=== PATIENT | female | born 1945 ===

== ENCOUNTER 2017-05-20 10:35 | Day surgery (SDC) | payer MEDICARE ==
[2017-05-16 09:16] VITALS: BMI 28.8
[2017-05-20] MEDS ORDERED: Propofol 10 mg/ml Inj (20 ML) ONE ×2 (12:27→12:44)
[2017-05-20 12:40] VITALS: O2SAT 99
[2017-05-20] MEDS ORDERED: Lactated Ringer's 1,000 ML IV SCH (13:00)
[2017-05-20 14:16] VITALS: BP 129/72; PULSE 50; RESP 19; TEMP 97.9
== END 2017-05-20 15:15 | disposition home or self-care (01) ==
LOC: ENDO 10:35
PROVIDERS: ATTEND Internal Medicine Gastroenterology
DX: K21.9 Gastro-esophageal reflux disease without esophagitis (principal); K44.9 Diaphragmatic hernia without obstruction or gangrene; K29.50 Unspecified chronic gastritis without bleeding
CPT/HCPCS: 43239; 88305; 88342; J2704; J7040; J7120

== ENCOUNTER 2017-12-26 10:01 | Day surgery (SDC) | payer OTHER ==
[2017-12-23 13:15] VITALS: BMI 29.4
[2017-12-26] MEDS ORDERED: Propofol 10 mg/ml Inj (20 ML) ONE (12:26)
[2017-12-26] MEDS ORDERED: Sodium Chloride 0.9% 1,000 ML IV SCH (12:45)
[2017-12-26 14:03] VITALS: BP 114/70; PULSE 60; RESP 14; TEMP 98.2; O2SAT 99
== END 2017-12-26 14:14 | disposition home or self-care (01) ==
LOC: ENDO 10:01
PROVIDERS: ATTEND Internal Medicine Gastroenterology
DX: K63.5 Polyp of colon (principal); K57.30 Diverticulosis of large intestine without perforation or abscess without bleeding; K64.8 Other hemorrhoids; K59.00 Constipation, unspecified
CPT/HCPCS: 45380; 88305; J2704; J7040

== ENCOUNTER 2018-04-22 13:33 | Observation (INO) | payer OTHER ==
[2018-04-22 13:34] VITALS: BMI 29.4
--- NOTE | 2018-04-22 14:57 | RAD ---
Date of service: 04/22/2018 HISTORY: chest pain COMPARISON: Portable chest 10/09/2016. FINDINGS: LUNGS: Inspiratory volume remains limited and prominent markings at the medial bases bilaterally may reflect crowding related to poor inspiratory effort. Infiltrates are not favored but further clinical correlation is recommended. PLEURA: No significant pleural effusion identified, no pneumothorax apparent. CARDIOVASCULAR: Given frontal technique, generally stable appearing cardiomediastinal silhouette. No pulmonary vascular congestion. OSSEOUS STRUCTURES: No significant abnormalities. VISUALIZED UPPER ABDOMEN: Normal. OTHER FINDINGS: Retrocardiac density likely reflects hiatal hernia once again. IMPRESSION: Minutes history volume may cause crowding of the bronchovascular markings at the medial bases. Early infiltrate not completely excluded but are not favored either. Clinically correlate further. No pleural effusion or pneumothorax bilaterally. Pulmonary vascular congestion. Relatively large hiatal hernia suspected.
--- NOTE | 2018-04-22 15:40 | ED PDOC ---
Arrival/HPI - General Chief Complaint: High Blood Pressure Time Seen by Provider: 04/22/18 14:10 Historian: Patient - History of Present Illness Narrative History of Present Illness (Text): 04/22/18 15:32 72yo female with pmhx of hypertension, Ventral hernia, GERD who present with complaint of epigastric abdominal pain and mid sternal chest pain x 2days. states pain was worse last night and he felt a "bump" on her chest. She however denies vomiting, diarrhea, constipation, SOB, diaphoresis, ripping/tearing upper back pain, fever,chills, LE edema, calf pain, [place], any other complaint. Past Medical History - Provider Review Nursing Documentation Reviewed: Yes - Infectious Disease Hx of Infectious Diseases: None - Tetanus Immunization Tetanus Immunization: Unknown - Reproductive Menopause: Yes - Cardiac Hx Hypertension: Yes - Pulmonary Hx Chronic Obstructive Pulmonary Disease (COPD): Yes - Neurological Hx Paralysis: No - HEENT Hx HEENT Disorder: No - Renal Hx Renal Disorder: No - Endocrine/Metabolic Hx Endocrine Disorders: No - Hematological/Oncological Hx Blood Transfusions: No Hx Blood Transfusion Reaction: No - Integumentary Hx Dermatological Disorder: No - Musculoskeletal/Rheumatological Hx Musculoskeletal Disorders: No - Gastrointestinal Hx Gastrointestinal Disorders: No - Genitourinary/Gynecological Hx Genitourinary Disorders: No - Psychiatric Hx Emotional Abuse: No Hx Physical Abuse: No Hx Substance Use: No - Surgical History Hx Cholecystectomy: Yes Hx Hysterectomy: Yes - Anesthesia Hx Anesthesia Reactions: No Hx Malignant Hyperthermia: No - Suicidal Assessment Feels Threatened In Home Enviroment: No Family/Social History - Physician Review Nursing Documentation Reviewed: Yes Family/Social History: Unknown Family HX Smoking Status: Former Smoker Hx Alcohol Use: No Hx Substance Use: No Allergies/Home Meds Allergies/Adverse Reactions: Allergies No Known Allergies Allergy (Verified 04/12/16 10:09) Home Medications: Home Meds Medication Instructions Recorded Confirmed Famotidine [Pepcid] 20 mg PO QPM 11/20/15 04/22/18 Levothyroxine Sodium [Levoxyl] 75 mcg PO DAILY 11/20/15 04/22/18 Olmesartan/Hydrochlorothiazide 12.5 mg PO DAILY 10/09/16 04/22/18 [Olmesartan-Hctz 40-12.5 mg Tab] Escitalopram [Lexapro] 10 mg PO DAILY 05/13/17 04/22/18 amLODIPine [Norvasc] 5 mg PO DAILY 05/13/17 04/22/18 ALPRAZolam [Xanax] 0.25 mg PO DAILY PRN 12/23/17 04/22/18 Aspirin [Lo-Dose Aspirin EC] 81 mg PO DAILY 12/23/17 04/22/18 Fluticasone Furoate [Arnuity 1 inh INH DAILY 12/23/17 04/22/18 Ellipta] Umeclidinium Brm/Vilanterol Tr 1 inh INH DAILY 12/23/17 04/22/18 [Anoro Ellipta 62.5-25 Mcg INH] traZODone [Desyrel] 50 mg PO HS 12/23/17 04/22/18 Albuterol Sulfate [Proair Hfa] 200 puff IH DAILY 04/15/18 04/22/18 Atorvastatin [Lipitor] 20 mg PO DAILY 04/22/18 04/22/18 Review of Systems - Physician Review All systems were reviewed & negative as marked: Yes - Review of Systems Constitutional: Normal Eyes: Normal ENT: Normal Respiratory: Normal Cardiovascular: Normal Gastrointestinal: Abdominal Pain, Nausea. absent: Constipation, Diarrhea, Vomiting, Hematochezia, Hematemesis Genitourinary Female: Normal Musculoskeletal: Normal Skin: Normal Neurological: Normal Endocrine: Normal Hemo/Lymphatic: Normal Psychiatric: Normal Physical Exam Vital Signs Reviewed: Yes Vital Signs Temp Pulse Pulse Resp BP Pulse Ox 04/22/18 18:01 98.3 F 59 L 18 99 04/22/18 18:00 59 L 04/22/18 16:48 55 L 19 137/67 97 04/22/18 13:57 99 F 97 H 18 167/91 H 99 Temperature: Afebrile Blood Pressure: Normal Pulse: Regular Respiratory Rate: Normal Appearance: Positive for: Well-Appearing, Non-Toxic, Comfortable Pain Distress: None Mental Status: Positive for: Alert and Oriented X 3 - Systems Exam Head: Present: Atraumatic, Normocephalic Pupils: Present: PERRL Extroacular Muscles: Present: EOMI Conjunctiva: Present: Normal Mouth: Present: Moist Mucous Membranes Neck: Present: Normal Range of Motion Respiratory/Chest: Present: Clear to Auscultation, Good Air Exchange. No: Respiratory Distress, Accessory Muscle Use, Wheezes, Decreased Breath Sounds, Rales, Retracting, Rhonchi Cardiovascular: Present: Regular Rate and Rhythm, Normal S1, S2. No: Murmurs Abdomen: No: Tenderness, Distention, Peritoneal Signs Back: Present: Normal Inspection Upper Extremity: Present: Normal Inspection. No: Cyanosis, Edema Lower Extremity: Present: Normal Inspection. No: Edema Neurological: Present: GCS=15, CN II-XII Intact, Speech Normal Skin: Present: Warm, Dry, Normal Color. No: Rashes Psychiatric: Present: Alert, Oriented x 3, Normal Insight, Normal Concentration Medical Decision Making ED Course and Treatment: 04/22/18 22:38 72yo female in ED for abdominal pain and chest pain x 2days. Labs ordered EKG Chest xray ASA , Pepcid ordered EKG Sinus dustin with nonspecific T waves @ 56bpm CXR NAD Lab was reviewed and first CE was unremarkable. However secondary to pt's cardiac risk factor, she needs OBS for serial cardiac exam. Case was DW and she accepted pt to her service. Result and plan was DW the pt and she agreed. - Lab Interpretations Lab Results: 04/22/18 15:46 04/22/18 15:46 Lab Results 04/22/18 15:46: Sodium 139, Potassium 3.8, Chloride 99, Carbon Dioxide 29, Anion Gap 15, BUN 13, Creatinine 0.7, Est GFR ( Amer) > 60, Est GFR (Non- Af Amer) > 60, Random Glucose 94, Calcium 9.6, Magnesium 1.9, Total Bilirubin 0.4, AST 29, ALT 27, Alkaline Phosphatase 65, Lactate Dehydrogenase 449, Total Creatine Kinase 105, Troponin I < 0.01, Total Protein 7.3, Albumin 4.2, Globulin 3.1, Albumin/Globulin Ratio 1.4, Lipase 83 04/22/18 15:46: Urine Color Yellow, Urine Appearance Clear, Urine pH 6.0, Ur Specific [place] 1.010, Urine Protein Negative, Urine Glucose (UA) Negative, Urine Ketones Negative, Urine Blood Trace-intact H, Urine Nitrate Negative, Urine Bilirubin Negative, Urine Urobilinogen 0.2, Ur Leukocyte Esterase Negative , Urine RBC 1 - 3, Urine WBC 0 - 2, Ur Epithelial Cells 3 - 4, Urine Bacteria Mod 04/22/18 15:46: PT 11.9, INR 1.04, APTT 29.5 04/22/18 15:46: WBC 5.3, RBC 4.65, Hgb 14.1, Hct 40.2, MCV 86.5, MCH 30.3, MCHC 35.1, RDW 14.1, Plt Count 216, MPV 9.1, Gran % 42.6 L, Lymph % (Auto) 45.3 H, [place] % (Auto) 7.9 H, Eos % (Auto) 3.6, Baso % (Auto) 0.6, Gran # 2.27, Lymph # ( Auto) 2.4, [place] # (Auto) 0.4, Eos # (Auto) 0.2, Baso # (Auto) 0.03 - RAD Interpretation Radiology Orders: 04/22/18 14:24 CHEST PORTABLE [RAD] Stat - Medication Orders Current Medication Orders: Albuterol Sulfate (Albuterol 0.083% Inhal Rubia (2.5 Mg/3 Ml) Ud) 2.5 mg IH [id number] [facility] Albuterol/Ipratropium (Duoneb 3 Mg/0.5 Mg (3 Ml) Ud) 3 ml IH Q2H PRN PRN Reason: Shortness of Breath Alprazolam (Xanax) 0.25 mg PO DAILY PRN; Protocol PRN Reason: Anxiety Stop: 04/29/18 20:51 Amlodipine Besylate (Norvasc) 5 mg PO DAILY [facility] Arformoterol Tartrate (Brovana) 15 mcg IH [id number] [facility] Arformoterol Tartrate (Brovana) 15 mcg IH [id number] [facility] Aspirin (Ecotrin) 81 mg PO DAILY [facility] Atorvastatin Calcium (Lipitor) 20 mg PO DIN [facility] Budesonide (Pulmicort Respules) 0.5 mg IH [id number] [facility] Enoxaparin Sodium (Lovenox) 40 mg SC DAILY [facility] PRN Reason: Protocol Escitalopram Oxalate (Lexapro) 10 mg PO DAILY [facility] Famotidine (Pepcid) 20 mg PO QPM [facility] Hydrochlorothiazide (Microzide) 12.5 mg PO DAILY [facility] Levothyroxine Sodium (Synthroid) 75 mcg PO 0600 [facility] Losartan Potassium (Cozaar) 100 mg PO DAILY [facility] Trazodone HCl (Desyrel) 50 mg PO HS [facility] Last Admin: 04/22/18 22:33 Dose: 50 mg Discontinued Medications Aspirin (Aspirin) 325 mg PO STAT STA Stop: 04/22/18 15:41 Last Admin: 04/22/18 17:15 Dose: 325 mg Famotidine (Pepcid) 20 mg IVP STAT STA Stop: 04/22/18 15:41 Last Admin: 04/22/18 17:15 Dose: 20 mg IVP Administration Document 04/22/18 17:15 [email or web address] (Rec: 04/22/18 17:15 [email or web address] [id number]) Charges for Administration # of IVP Administrations 1 Disposition/Present on Arrival - Present on Arrival Any Indicators Present on Arrival: No History of DVT/PE: No History of Uncontrolled Diabetes: No Urinary Catheter: No History of Decub. Ulcer: No History Surgical Site Infection Following: None - Disposition Have Diagnosis and Disposition been Completed?: Yes Diagnosis: Chest pain, Abdominal pain Disposition: HOSPITALIZED Disposition Time: 17:15 Patient Plan: Admission Patient Problems: Current Active Problems Problem Status Onset Abdominal pain Acute Chest pain Acute Condition: STABLE
[2018-04-22 16:38] LABS: BASO # 0.03 K/mm3 (0.0-2.0); BASO % 0.6 % (0.0-3.0); EOS # 0.2 (0.0-0.7); EOS % 3.6 % (1.5-5.0); GRAN # 2.27 (1.4-6.5); GRAN % 42.6 % (50.0-68.0); HEMOGLOBIN 14.1 g/dL (12.0-16.0); LYMPH # 2.4 (1.2-3.4); LYMPH % 45.3 % (22.0-35.0); MEAN CELL VOLUME 86.5 fl (80.0-105.0); MEAN CORPUSCULAR HEMOGLOBIN 30.3 pg (25.0-35.0); MEAN CORPUSCULAR HGB CONC 35.1 g/dl (31.0-37.0); MEAN PLATELET VOLUME 9.1 fl (7.0-11.0); MONO # 0.4 (0.1-0.6); MONO % 7.9 % (1.0-6.0); RBC 4.65 10^6/uL (3.5-6.1); RED CELL DISTRIBUTION WIDTH 14.1 % (11.5-14.5); WHITE BLOOD COUNT 5.3 10^3/ul (4.5-11.0)
[2018-04-22 16:39] LABS: URINE BILIRUBIN NEGATIVE (NEGATIVE); URINE BLOOD TRACE-INTACT (NEGATIVE); URINE GLUCOSE (UA) NEGATIVE (NEGATIVE); URINE LEUKOCYTE ESTERASE NEGATIVE Leu/uL (NEGATIVE); URINE PROTEIN NEGATIVE mg/dL (<30 mg/dL); URINE UROBILINOGEN 0.2 E.U./dL (<1 E.U./dL)
[2018-04-22 16:40] LABS: INR 1.04; PARTIAL THROMBOPLASTIN TIME 29.5 Seconds (25.1-36.5); PROTHROMBIN TIME 11.9 SECONDS (9.4-12.5)
[2018-04-22 16:45] LABS: ALB/GLOB RATIO 1.4 (1.1-1.8); ALBUMIN 4.2 g/dL (3.0-4.8); ALT/SGPT 27 U/L (7-56); AST/SGOT 29 U/L (14-36); BLOOD UREA NITROGEN 13 mg/dL (7-21); CALCIUM 9.6 mg/dL (8.4-10.5); GFR NON-AFRICAN AMERICAN > 60; LIPASE 83 U/L (23-300); URINE APPEARANCE CLEAR (CLEAR); URINE COLOR YELLOW (YELLOW)
[2018-04-22 17:02] LABS: TROPONIN I < 0.01 ng/mL
[2018-04-22 17:19] LABS: URINE BACTERIA MOD (NEG); URINE WBC 0 - 2 /hpf (0-6)
[2018-04-22] MEDS ORDERED: Albuterol-Ipratrop 3 mg / 0.5 (3 ml) UD IH PRN (19:36)
--- NOTE | 2018-04-22 21:05 | CP.PCM.HP ---
<AbhilashRay - Last Filed: 04/22/18 20:29> History of Present Illness - History of Present Illness History of Present Illness: Medicine H&P for : Abhilash, PGY - 2, IM resident Chief Complaint: Chest pain with abdominal pain HPI: 72 F with pertinent medical history of hypothyroidism, hyperlipidemia , GERD, and "pre-diabetes" presents with 2 day duration of mid-sternal, pressure like, 7/10 chest pain that is constant and occurs both at rest and on exertion. Patient states that over the past 2 months, whereas before she was able to easily walk 5 blocks, she now gets short of breath. Patient also complains of mild epigastric pain. Re: cardiac hx, patient had myocardial perfusion/stress test on 04/15/18; perfusion segment was normal, but the nuclear portion is pending. Patient last ECHO was 2013, with normal EF (64%), but mild diastolic dysfunction and RVSP of 28 (indicating mild pulm HTN). No hx of AMI or cath. EKG obtained in ED showed flattened T waves with bradycardia but normal rhythm (as read by me). Patient has questionable hx of aortic aneurysm, which, per chart review, was found to be negative on aortogram read by Dr. Murali Collins in 2017. Review of Systems: 12 point ROS obtained and negative except as per HPI Surgical Hx: Cholecystectomy, Appendectomy, Hysterectomy, Tonsillectomy Medical Hx: HTN, Hypothyroidism, HLD, Asthma, Depression, Phobias, Pre- diabetes Allergies: NKDA Social History: Denies illicits, tobacco; very rare social drinker Home Meds: ASA 81 mg/Lexapro 10 mg/Pepcid 20 mg/Lipitor 20 mg/Norvasc 5 mg/ Benicar+HCTZ 40/12.5 mg/Levothyroxine 75 mcg/Arnor Ellipta/Arnuity Ellipta - all daily; Xanax .25 mg HS prn; and Trazodone 50 mg HS Family History: Depression, thyroid dz, arthritis, VERMA's, asthma and HTN PMD: Dr. Copeland Present on Admission - Present on Admission Any Indicators Present on Admission: No Past Patient History - Infectious Disease Hx of Infectious Diseases: None - Tetanus Immunizations Tetanus Immunization: Unknown - Past Social History Smoking Status: Former Smoker - CARDIAC Hx Hypertension: Yes - PULMONARY Hx Chronic Obstructive Pulmonary Disease (COPD): Yes - NEUROLOGICAL Hx Paralysis: No - HEENT Hx HEENT Problems: No - RENAL Hx Chronic Kidney Disease: No - ENDOCRINE/METABOLIC Hx Endocrine Disorders: No - HEMATOLOGICAL/ONCOLOGICAL Hx Blood Transfusions: No Hx Blood Transfusion Reaction: No - INTEGUMENTARY Hx Dermatological Problems: No - MUSCULOSKELETAL/RHEUMATOLOGICAL Hx Musculoskeletal Disorders: No - GASTROINTESTINAL Hx Gastrointestinal Disorders: No - GENITOURINARY/GYNECOLOGICAL Hx Genitourinary Disorders: No - PSYCHIATRIC Hx Emotional Abuse: No Hx Physical Abuse: No Hx Substance Use: No - SURGICAL HISTORY Hx Cholecystectomy: Yes Hx Hysterectomy: Yes - ANESTHESIA Hx Anesthesia Reactions: No Hx Malignant Hyperthermia: No Meds Allergies/Adverse Reactions: Allergies Allergy/AdvReac Type Severity Reaction Status Date / Time No Known Allergies Allergy Verified 04/12/16 10:09 Physical Exam - Constitutional Appears: Well, Younger Than Stated Age - Head Exam Head Exam: ATRAUMATIC, NORMAL INSPECTION, NORMOCEPHALIC - Eye Exam Eye Exam: EOMI, Normal appearance, PERRL Pupil Exam: NORMAL ACCOMODATION, PERRL - ENT Exam ENT Exam: Mucous Membranes Moist, Normal Exam - Neck Exam Neck exam: Positive for: Normal Inspection - Respiratory Exam Respiratory Exam: Clear to Auscultation Bilateral, NORMAL BREATHING PATTERN - Cardiovascular Exam Cardiovascular Exam: REGULAR RHYTHM, RRR, +S1, +S2. absent: Irregular Rhythm, Systolic Murmur - GI/Abdominal Exam GI & Abdominal Exam: Normal Bowel Sounds, Soft. absent: Tenderness Additional comments: Patient has mild bulge in mid sub-diaphragmatic region, mildly tender to palpation - Extremities Exam Extremities exam: Positive for: normal inspection - Back Exam Back exam: NORMAL INSPECTION - Neurological Exam Neurological exam: Alert, CN II-XII Intact, Normal Gait, Oriented x3, Reflexes Normal - Psychiatric Exam Psychiatric exam: Normal Affect, Normal Mood - Skin Skin Exam: Dry, Intact, Normal Color, Warm Results - Vital Signs Recent Vital Signs: Last Vital Signs Temp 98.3 F 04/22/18 18:01 Pulse 59 L 04/22/18 18:01 Resp 18 04/22/18 18:01 BP 137/67 04/22/18 16:48 Pulse Ox 99 04/22/18 18:01 - Labs Result Diagrams: 04/22/18 15:46 04/22/18 15:46 Labs: Laboratory Results - last 24 hr 04/22/18 19:56 Troponin I < 0.01 Assessment & Plan - Assessment and Plan (Free Text) Assessment: 72 F with pertinent medical history of HTN, hypothyroidism, and HLD, admitted for chest pain. Patient's current lab values indicate no acute electrolyte abnormalities, as well as negative troponins, indicating no cardiac infarction. EKG on admission did not show any VIVIAN nor did it show any ST depressions indicating ischemia. Recent myocardial perfusion study is also negative. However, more data points included in the lipid panel, are necessary to calculate ASCVD score. WISAM score is 3. Plan: Chest Pain, likely 2/2 musculoskeletal VS GERD - Patient is getting pepcid in case of GERD - Tropes X 3; EKG in the AM; A1C, Lipid panel, TSH - Cardiology consult: Dr. Tidwell - Continue with home ASA Abdominal Pain, likely 2/2 GERD - GI COnsult: Dr. Hilario Hx HTN - Continue with home norvasc and substitute Benicar/HCTZ 40/12.5 with Losartan/ HCTZ 100/12.5 - Monitor vitals Hx Hypothyroidism - TSH - Continue with home Synthroid 75 mcg Hx HLD - Lipid panel, A1C as above - Continue with home Lipitor Hx Asthma - Duonebs PRN - Pulmicort, Brovana Hx Depression - Continue with home Lexapro Hx Phobias - Continue with home Trazodone, Xanax HS Pre-diabetes - A1C as above GI/DVT PPX - Pepcid; Juan score indicates chemical PPX, Lovenox <,Elisa R - Last Filed: 04/24/18 15:33> Results - Vital Signs Recent Vital Signs: Last Vital Signs Temp 97.8 F 04/23/18 12:00 Pulse 60 04/23/18 12:00 Resp 20 04/23/18 12:00 BP 155/89 H 04/23/18 12:00 Pulse Ox 99 04/23/18 06:00 - Labs Result Diagrams: 04/23/18 06:30 04/23/18 06:30 Attending/Attestation - Attestation I have personally seen and examined this patient.: Yes I have fully participated in the care of the patient.: Yes I have reviewed all pertinent clinical information: Yes Notes (Text): Patient seen and examined by me at 6:30PM with resident 04/22/18. Case including HPI, physical exam, and assessment and plan discussed with resident. Agree with above with following additions/corrections. Patient is a 72 year old female with past medical history significant for hypothyroidism, hyperlipidemia, GERD, pre-diabetes, asthma, depression, hypertension, and abdominal hernia that presented to the emergency room with chest pain and abdominal pain. Patient states pain started on Friday04/20/18. States pain is in middle of chest and in the abdomen. Pain is constant, worse at night. Pain does not radiate. She did not try any new medications for this. No associated diaphoresis. Patient states she did have some nausea yesterday. Patient did have recent stress test. Patient believes results were normal. Patient states she also has been having shortness of breath with ambulating 2 blocks for the past 2 months but has been following with radiology administrator. Patient also complains of headache since 04/20/18. No dizziness. No fevers or chills. No vomiting. No palpitations. No dysuria. No diarrhea or constipation. 12 point review of systems reviewed by me. Please see HPI. All other systems are negative. Family history: Patient is unsure. Mother when patient was 11 years of age and father when patient was 15 years of age. Physical exam: General: Awake and alert sitting up in bed in no acute distress HEENT: Normocephalic atraumatic. Pupils equal reactive. Extraocular muscles intact. Positive scleral icterus. Oropharynx is pink and moist. No pharyngeal erythema or exudate appreciated. Neck is supple. Hearing grossly intact. Ears and nose externally unremarkable Cardiovascular: Normal rhythm. Normal S1, S2. No murmurs, rubs, or gallops appreciated Pulmonary: Normal respiratory effort. No rhonchi, rales or wheezing appreciated. Gastrointestinal: Soft, nondistended. Positive epigastric tenderness. Positive bowel sounds all 4 quadrants, no guarding. Musculoskeletal: Moves all extremities, no calf tenderness, No edema appreciated. Central nervous system: AAOx3. CN2-12 grossly intact. 5/5 muscle strength all extremities. Dermatologic: Skin warm and dry Assessment and plan: Patient is a 72 year old female with past medical history significant for hypothyroidism, hyperlipidemia, GERD, pre-diabetes, asthma, depression, hypertension, and abdominal hernia that presented to the emergency room with chest pain and abdominal pain. 1. Chest pain. Rule out ACS. Reproducible. May be secondary to GERD. Cardiology consulted, follow up recommendations. Follow up serial troponins. Continue with ASA. Follow up 2d echo. Monitor on telemetry. 2. Abdominal pain. May be secondary to Reflux. Continue home pepcid. GI consulted, follow up recommendations. 3. Hypertension. Patient takes Benicar/HCTZ at home. Placed on losartan and HCTZ here 4. Hypothyroidism. Continue home synthroid 5. Hyperlipidemia. Continue home lipitor 6. Asthma. No acute exacerbation. Placed on Brovana and pulmicort here. Nebulizer treatments as needed 7. Depression and anxiety. Continue home lexapro, trazodone, and xanax. Case was discussed in detail with the patient regarding current diagnosis and treatment plan.
--- NOTE | 2018-04-22 23:21 | CARD ---
APPROVED REPORT Date of service: 04/22/2018 EKG Measurement Heart [id number] <Conclusion> Sinus bradycardia Nonspecific T wave abnormality Abnormal ECG
[2018-04-23 00:05] VITALS: RESP 20
[2018-04-23] MEDS ORDERED: Albuterol 0.083% Inhal Sol (2.5 mg/3 mL) UD IH SCH (02:00)
[2018-04-23] MEDS ORDERED: Levothyroxine 75 MCG TAB PO SCH (06:00)
[2018-04-23 06:32] VITALS: TEMP 97.8; O2SAT 99
[2018-04-23 07:08] LABS: BASO # 0.03 K/mm3 (0.0-2.0); BASO % 0.6 % (0.0-3.0); EOS # 0.2 (0.0-0.7); EOS % 3.8 % (1.5-5.0); GRAN # 1.62 (1.4-6.5); GRAN % 34.6 % (50.0-68.0); HEMOGLOBIN 13.5 g/dL (12.0-16.0); LYMPH # 2.5 (1.2-3.4); LYMPH % 53.5 % (22.0-35.0); MEAN CELL VOLUME 86.7 fl (80.0-105.0); MEAN CORPUSCULAR HEMOGLOBIN 29.9 pg (25.0-35.0); MEAN CORPUSCULAR HGB CONC 34.4 g/dl (31.0-37.0); MEAN PLATELET VOLUME 9.2 fl (7.0-11.0); MONO # 0.4 (0.1-0.6); MONO % 7.5 % (1.0-6.0); RBC 4.52 10^6/uL (3.5-6.1); RED CELL DISTRIBUTION WIDTH 14.3 % (11.5-14.5); WHITE BLOOD COUNT 4.7 10^3/ul (4.5-11.0)
[2018-04-23 07:10] LABS: ALB/GLOB RATIO 1.3 (1.1-1.8); ALBUMIN 3.7 g/dL (3.0-4.8); ALT/SGPT 30 U/L (7-56); AST/SGOT 25 U/L (14-36); BLOOD UREA NITROGEN 12 mg/dL (7-21); GFR NON-AFRICAN AMERICAN > 60; HDL CHOLESTEROL 45 mg/dL (29-60)
[2018-04-23 07:20] LABS: LDL CHOLESTEROL 83 mg/dL (0-129)
[2018-04-23] MEDS ORDERED: Arformoterol 15 mcg/2 ml Inh Sol IH SCH ×2 (08:00)
[2018-04-23] MEDS ORDERED: Budesonide 0.5 mg/2 ml Inhal Susp UD IH SCH (08:00)
--- NOTE | 2018-04-23 08:20 | CP.PCM.CON ---
History of Present Illness - History of Present Illness History of Present Illness: Awake,alert,no distress, denies chest pain now Reason for consultation: Cardiac evaluation of chest pain, history of hypertension, hyperlipidemia, asthma, depression Brief history of present illness: A 72 year old female who came in to the ER due to mid chest pressure for the past 2 days. Claimed to have shortness of breath when walking. History of hypertension,hypothyroidism, hyperlipidemia, GERD,asthma, depression, cholecystectomy, appendectomy, hysterectomy, tonsillectomy. Seen and examined by me and Dr. Gaines Review of Systems - Review of Systems All systems: reviewed and no additional remarkable complaints except Review of Systems: from HPI Past Patient History - Infectious Disease Hx of Infectious Diseases: None - Tetanus Immunizations Tetanus Immunization: Unknown - Past Social History Smoking Status: Former Smoker - CARDIAC Hx Hypertension: Yes - PULMONARY Hx Chronic Obstructive Pulmonary Disease (COPD): Yes - NEUROLOGICAL Hx Paralysis: No - HEENT Hx HEENT Problems: No - RENAL Hx Chronic Kidney Disease: No - ENDOCRINE/METABOLIC Hx Endocrine Disorders: No - HEMATOLOGICAL/ONCOLOGICAL Hx Blood Transfusions: No Hx Blood Transfusion Reaction: No - INTEGUMENTARY Hx Dermatological Problems: No - MUSCULOSKELETAL/RHEUMATOLOGICAL Hx Musculoskeletal Disorders: No - GASTROINTESTINAL Hx Gastrointestinal Disorders: No - GENITOURINARY/GYNECOLOGICAL Hx Genitourinary Disorders: No - PSYCHIATRIC Hx Emotional Abuse: No Hx Physical Abuse: No Hx Substance Use: No - SURGICAL HISTORY Hx Cholecystectomy: Yes Hx Hysterectomy: Yes - ANESTHESIA Hx Anesthesia Reactions: No Hx Malignant Hyperthermia: No Meds Home Medications: Home Medication List Medication Instructions Recorded Confirmed Type Levothyroxine [Synthroid] 100 mcg PO 0600 #14 tab 04/23/18 Rx Pantoprazole Sodium [Protonix] 40 mg PO DAILY #14 ect 04/23/18 Rx Ranitidine HCl 150 mg PO HS #14 tablet 04/23/18 Rx Allergies/Adverse Reactions: Allergies Allergy/AdvReac Type Severity Reaction Status Date / Time No Known Allergies Allergy Verified 04/12/16 10:09 - Medications Medications: Current Medications Albuterol/Ipratropium (Duoneb 3 Mg/0.5 Mg (3 Ml) Ud) 3 ml IH Q2H PRN PRN Reason: Shortness of Breath Alprazolam (Xanax) 0.25 mg PO DAILY PRN; Protocol PRN Reason: Anxiety Stop: 04/29/18 20:51 Amlodipine Besylate (Norvasc) 5 mg PO DAILY [facility] Arformoterol Tartrate (Brovana) 15 mcg IH [id number] [facility] Last Admin: 04/23/18 07:28 Dose: 15 mcg Aspirin (Ecotrin) 81 mg PO DAILY [facility] Atorvastatin Calcium (Lipitor) 20 mg PO DIN [facility] Budesonide (Pulmicort Respules) 0.5 mg IH [id number] [facility] Last Admin: 04/23/18 07:28 Dose: 0.5 mg Enoxaparin Sodium (Lovenox) 40 mg SC DAILY [facility] PRN Reason: Protocol Escitalopram Oxalate (Lexapro) 10 mg PO DAILY [facility] Famotidine (Pepcid) 20 mg PO QPM [facility] Hydrochlorothiazide (Microzide) 12.5 mg PO DAILY [facility] Levothyroxine Sodium (Synthroid) 75 mcg PO 0600 [facility] Last Admin: 04/23/18 06:00 Dose: Not Given Losartan Potassium (Cozaar) 100 mg PO DAILY [facility] Trazodone HCl (Desyrel) 50 mg PO HS [facility] Last Admin: 04/22/18 22:33 Dose: 50 mg Physical Exam - Constitutional Appears: No Acute Distress - Head Exam Head Exam: NORMOCEPHALIC - Eye Exam Eye Exam: Normal appearance - ENT Exam ENT Exam: Mucous Membranes Moist - Respiratory Exam Respiratory Exam: Decreased Breath Sounds, Clear to Auscultation Bilateral, NORMAL BREATHING PATTERN - Cardiovascular Exam Cardiovascular Exam: +S1, +S2 Additional comments: denies chest pain - GI/Abdominal Exam GI & Abdominal Exam: Normal Bowel Sounds, Soft Additional comments: non tender, mid epigastric pain - Neurological Exam Neurological exam: Alert, Oriented x3 - Psychiatric Exam Psychiatric exam: Normal Affect - Skin Skin Exam: Dry, Intact, Warm Results - Vital Signs Recent Vital Signs: Last Vital Signs Temp 97.8 F 04/23/18 06:00 Pulse 51 L 04/23/18 06:00 Resp 20 04/23/18 06:00 BP 119/70 04/23/18 06:00 Pulse Ox 99 04/23/18 06:00 - Labs Result Diagrams: 04/23/18 06:30 04/23/18 06:30 Labs: Laboratory Results - last 24 hr 04/22/18 04/23/18 04/23/18 19:56 01:50 06:30 WBC 4.7 RBC 4.52 Hgb 13.5 Hct 39.2 MCV 86.7 MCH 29.9 MCHC 34.4 RDW 14.3 Plt Count 208 MPV 9.2 Gran % 34.6 L Lymph % (Auto) 53.5 H Andrews % (Auto) 7.5 H Eos % (Auto) 3.8 Baso % (Auto) 0.6 Gran # 1.62 Lymph # (Auto) 2.5 Andrews # (Auto) 0.4 Eos # (Auto) 0.2 Baso # (Auto) 0.03 Sodium Potassium Chloride Carbon Dioxide Anion Gap BUN Creatinine Est GFR ( Amer) Est GFR (Non-Af Amer) Random Glucose Calcium Phosphorus Magnesium Total Bilirubin AST ALT Alkaline Phosphatase Troponin I < 0.01 < 0.01 Total Protein Albumin Globulin Albumin/Globulin Ratio Triglycerides Cholesterol LDL Cholesterol Direct HDL Cholesterol TSH 3rd Generation 04/23/18 04/23/18 04/23/18 06:30 06:30 07:30 WBC RBC Hgb Hct MCV MCH MCHC RDW Plt Count MPV Gran % Lymph % (Auto) Andrews % (Auto) Eos % (Auto) Baso % (Auto) Gran # Lymph # (Auto) Andrews # (Auto) Eos # (Auto) Baso # (Auto) Sodium 139 Potassium 3.7 Chloride 102 Carbon Dioxide 28 Anion Gap 13 BUN 12 Creatinine 0.7 Est GFR ( Amer) > 60 Est GFR (Non-Af Amer) > 60 Random Glucose 93 Calcium 9.0 Phosphorus 3.8 Magnesium 1.9 Total Bilirubin 0.6 AST 25 ALT 30 Alkaline Phosphatase 54 Troponin I < 0.01 Total Protein 6.6 Albumin 3.7 Globulin 2.9 Albumin/Globulin Ratio 1.3 Triglycerides 87 Cholesterol 165 LDL Cholesterol Direct 83 HDL Cholesterol 45 TSH 3rd Generation 7.57 H Assessment & Plan - Assessment and Plan (Free Text) Assessment: A 72 year old female who came in to the ER due to mid chest pressure for the past 2 days. Claimed to have shortness of breath when walking. Upon examination , pressure is at upper epigastric area, below sternum.Denies any pain at examination. Patient has history of GERD. History of hypertension,hypothyroidism , hyperlipidemia, asthma, COPD, former smoker,depression, cholecystectomy, appendectomy, hysterectomy, tonsillectomy. Atypical chest pain.GERD or possible hiatal hernia. Troponin x 4 normal. Recent Stress test normal. Review of previous cardiac work up: 04/15/18- Stress test-Normal myocardial perfusion, LVEF 76 % good LV function 04/29/14-ECHO- Normal valve structure, LVEF 64% Plan: Denies chest pain now, pressure like at mid epigastric area Continue Pepcid Heart rate and blood pressure stable Troponin x 4 normal Echo to evaluate LV function On Norvasc 5 mg daily,ASA 81 mg daily, Lovenox 40 mg daily, Pepcid 20 mg daily, Microzide 12.5 mg daily,Synthroid 75 mcg daily Cozaar 100 mg daily GI on consult Continue current treatment Continue current medications Will follow up Plan and treatment discussed with Dr. Gaines Thank you for the opportunity in taking care of Ms. Jaimie Clifton - Date & Time Date: 04/23/18 Time: 06:10
--- NOTE | 2018-04-23 09:07 | CP.PCM.CON ---
History of Present Illness - History of Present Illness History of Present Illness: Gastroenterology consult note for Dr. Sulaiman Boyle PGY2 Reason for consult: Abdominal pain with Hx GERD Patient is a 72 F with a past medical history significant for hypothyroidism, hypertension, gastritis, diverticulosis who presented with complaints of chest pain which began Friday night. Patient states on Friday prior to bed she felt fine however during the night she was experiencing chest and abdominal pain which causes her to toss and turn through the night. That morning she woke up with the same pain which remain constant. She states she tried taking tylenol to relieve the pain however was not successful. Patient describes the pain ad a pressure in the substernal region rating it initially a 10/10 with no radiation. States substernal chest pain pain was constant and had associated abdominal pain which was also non radiating but localized to the epigastric region. Patient states she then went to [place] on Friday with family despite her pain. With persistence of pain patient states she returned from [place] on Friday and came straight to the emergency department. Patient was evaluated this morning and states abdominal pain has fully resolved however substernal pain is still present at a 2/10. Patient denies current abdominal pain, nausea, vomiting, diarrhea, loss of appetite, bloody bowel movements, shortness of breath, fevers, chills, headache, cough, Patient last performed colonoscopy was 11/2017 which revealed internal hemorrhoids , diminutive cecal polyp and diverticulosis. Cecal polyp path report revealed hyperplastic changed without dysplasia. Upper EGD was performed in 05/2017 which revealed chronic gastritis and paraesophageal hernia. Patient was recommended to continue with PPI therapy. Patient also had cardiac stress test this year which was negative for any abnormal findings. PMD:Dr. Copeland Gastroenterologit: Dr. Hilario Surgical Hx:Cholecystectomy, Appendectomy, Hysterectomy, Tonsillectomy Medical Hx:HTN, Hypothyroidism, HLD, Asthma, Depression, Phobias, Pre-diabetes Allergies:NKDA Social History:Denies illicits, tobacco; very rare social drinker Home Meds:ASA 81 mg/Lexapro 10 mg/Pepcid 20 mg/Lipitor 20 mg/Norvasc 5 mg/ Benicar+HCTZ 40/12.5 mg/Levothyroxine 75 mcg/Arnor ,Ellipta/Arnuity Ellipta - all daily; Xanax .25 mg HS prn; and Trazodone 50 mg HS Family History:Depression, thyroid dz, arthritis, VERMA's, asthma and HTN Review of Systems - Constitutional Constitutional: absent: Anorexia, Chills, Fatigue, Fever - EENT Eyes: absent: Change in Vision - Cardiovascular Cardiovascular: Chest Pain. absent: Leg Edema - Respiratory Respiratory: absent: Cough, Dyspnea - Gastrointestinal Gastrointestinal: absent: Abdominal Pain, Nausea, Vomiting - Genitourinary Genitourinary: absent: Dysuria - Musculoskeletal Musculoskeletal: absent: Arthralgias - Neurological Neurological: absent: Abnormal Gait, Dizziness, Numbness - Psychiatric Psychiatric: absent: Anxiety Past Patient History - Infectious Disease Hx of Infectious Diseases: None - Tetanus Immunizations Tetanus Immunization: Unknown - Past Social History Smoking Status: Former Smoker - CARDIAC Hx Hypertension: Yes - PULMONARY Hx Chronic Obstructive Pulmonary Disease (COPD): Yes - NEUROLOGICAL Hx Paralysis: No - HEENT Hx HEENT Problems: No - RENAL Hx Chronic Kidney Disease: No - ENDOCRINE/METABOLIC Hx Endocrine Disorders: No - HEMATOLOGICAL/ONCOLOGICAL Hx Blood Transfusions: No Hx Blood Transfusion Reaction: No - INTEGUMENTARY Hx Dermatological Problems: No - MUSCULOSKELETAL/RHEUMATOLOGICAL Hx Musculoskeletal Disorders: No - GASTROINTESTINAL Hx Gastrointestinal Disorders: No - GENITOURINARY/GYNECOLOGICAL Hx Genitourinary Disorders: No - PSYCHIATRIC Hx Emotional Abuse: No Hx Physical Abuse: No Hx Substance Use: No - SURGICAL HISTORY Hx Cholecystectomy: Yes Hx Hysterectomy: Yes - ANESTHESIA Hx Anesthesia Reactions: No Hx Malignant Hyperthermia: No Meds Allergies/Adverse Reactions: Allergies Allergy/AdvReac Type Severity Reaction Status Date / Time No Known Allergies Allergy Verified 04/12/16 10:09 - Medications Medications: Current Medications Albuterol/Ipratropium (Duoneb 3 Mg/0.5 Mg (3 Ml) Ud) 3 ml IH Q2H PRN PRN Reason: Shortness of Breath Alprazolam (Xanax) 0.25 mg PO DAILY PRN; Protocol PRN Reason: Anxiety Stop: 04/29/18 20:51 Amlodipine Besylate (Norvasc) 5 mg PO DAILY [facility] Arformoterol Tartrate (Brovana) 15 mcg IH [id number] NATALI Last Admin: 04/23/18 07:28 Dose: 15 mcg Aspirin (Ecotrin) 81 mg PO DAILY [facility] Atorvastatin Calcium (Lipitor) 20 mg PO DIN [facility] Budesonide (Pulmicort Respules) 0.5 mg IH [id number] [facility] Last Admin: 04/23/18 07:28 Dose: 0.5 mg Enoxaparin Sodium (Lovenox) 40 mg SC DAILY [facility] PRN Reason: Protocol Escitalopram Oxalate (Lexapro) 10 mg PO DAILY [facility] Famotidine (Pepcid) 20 mg PO QPM [facility] Hydrochlorothiazide (Microzide) 12.5 mg PO DAILY [facility] Levothyroxine Sodium (Synthroid) 75 mcg PO 0600 [facility] Last Admin: 04/23/18 06:00 Dose: Not Given Losartan Potassium (Cozaar) 100 mg PO DAILY [facility] Trazodone HCl (Desyrel) 50 mg PO HS [facility] Last Admin: 04/22/18 22:33 Dose: 50 mg Physical Exam - Head Exam Head Exam: ATRAUMATIC, NORMAL INSPECTION, NORMOCEPHALIC - Eye Exam Eye Exam: EOMI, Normal appearance - ENT Exam ENT Exam: Mucous Membranes Moist, Normal Exam - Neck Exam Neck exam: Positive for: Normal Inspection - Respiratory Exam Respiratory Exam: Clear to Auscultation Bilateral, Rhonchi, NORMAL BREATHING PATTERN - Cardiovascular Exam Cardiovascular Exam: REGULAR RHYTHM, +S1, +S2 - GI/Abdominal Exam GI & Abdominal Exam: Normal Bowel Sounds. absent: Distended, Firm, Mass - Extremities Exam Extremities exam: Positive for: normal inspection - Back Exam Back exam: NORMAL INSPECTION - Neurological Exam Neurological exam: Alert, CN II-XII Intact, Oriented x3 - Psychiatric Exam Psychiatric exam: Normal Affect, Normal Mood - Skin Skin Exam: Intact, Normal Color, Warm Results - Vital Signs Recent Vital Signs: Last Vital Signs Temp 97.8 F 04/23/18 06:00 Pulse 51 L 04/23/18 06:00 Resp 20 04/23/18 06:00 BP 119/70 04/23/18 06:00 Pulse Ox 99 04/23/18 06:00 - Labs Result Diagrams: 04/23/18 06:30 04/23/18 06:30 Labs: Laboratory Results - last 24 hr 04/22/18 04/23/18 04/23/18 19:56 01:50 06:30 WBC 4.7 RBC 4.52 Hgb 13.5 Hct 39.2 MCV 86.7 MCH 29.9 MCHC 34.4 RDW 14.3 Plt Count 208 MPV 9.2 Gran % 34.6 L Lymph % (Auto) 53.5 H [place] % (Auto) 7.5 H Eos % (Auto) 3.8 Baso % (Auto) 0.6 Gran # 1.62 Lymph # (Auto) 2.5 [place] # (Auto) 0.4 Eos # (Auto) 0.2 Baso # (Auto) 0.03 Sodium Potassium Chloride Carbon Dioxide Anion Gap BUN Creatinine Est GFR ( Amer) Est GFR (Non-Af Amer) Random Glucose Calcium Phosphorus Magnesium Total Bilirubin AST ALT Alkaline Phosphatase Troponin I < 0.01 < 0.01 Total Protein Albumin Globulin Albumin/Globulin Ratio Triglycerides Cholesterol LDL Cholesterol Direct HDL Cholesterol TSH 3rd Generation 04/23/18 04/23/18 04/23/18 06:30 06:30 07:30 WBC RBC Hgb Hct MCV MCH MCHC RDW Plt Count MPV Gran % Lymph % (Auto) [place] % (Auto) Eos % (Auto) Baso % (Auto) Gran # Lymph # (Auto) [place] # (Auto) Eos # (Auto) Baso # (Auto) Sodium 139 Potassium 3.7 Chloride 102 Carbon Dioxide 28 Anion Gap 13 BUN 12 Creatinine 0.7 Est GFR ( Amer) > 60 Est GFR (Non-Af Amer) > 60 Random Glucose 93 Calcium 9.0 Phosphorus 3.8 Magnesium 1.9 Total Bilirubin 0.6 AST 25 ALT 30 Alkaline Phosphatase 54 Troponin I < 0.01 Total Protein 6.6 Albumin 3.7 Globulin 2.9 Albumin/Globulin Ratio 1.3 Triglycerides 87 Cholesterol 165 LDL Cholesterol Direct 83 HDL Cholesterol 45 TSH 3rd Generation 7.57 H Assessment & Plan - Assessment and Plan (Free Text) Assessment: Patient is a 72 F with a past medical history significant for hypothyroidism, hypertension, gastritis, diverticulosis who presented with complaints of chest pain and abdominal pain (now resolved) which began Friday night. Plan: -Continue with PPI therapy -CT abdomen/pelvis with PO and IV contrast
[2018-04-23] MEDS ORDERED: Enoxaparin 40 mg Syringe SC SCH (10:00)
[2018-04-23] MEDS ORDERED: Albuterol HFA 90 mcg/actuation (8 g) IH SCH (10:00)
[2018-04-23] MEDS ORDERED: Barium Sulfate Susp 2.1% w/v, 2.0% w/w 450 mL Bottle PO ONE (10:26)
[2018-04-23 12:43] VITALS: BP 155/89; PULSE 60
[2018-04-23] MEDS ORDERED: Iohexol 350 MG/100 ML VIAL ONE (12:53)
--- NOTE | 2018-04-23 13:42 | CT ---
Date of service: 04/23/2018 PROCEDURE: CT Abdomen and Pelvis with contrast HISTORY: abdominal pain COMPARISON: None. TECHNIQUE: Contrast dose: 100 cc of Omni 350 Radiation dose: Total exam DLP = 446 mGy-cm. This CT exam was performed using one or more of the following dose reduction techniques: Automated exposure control, adjustment of the mA and/or kV according to patient size, and/or use of iterative reconstruction technique. FINDINGS: LOWER THORAX: There is a large hiatal hernia. The stomach is moderately distended and filled with debris. LIVER: Unremarkable. No gross lesion or ductal dilatation. GALLBLADDER AND BILE DUCTS: Gallbladder removed. PANCREAS: Unremarkable. No gross lesion or ductal dilatation. SPLEEN: Unremarkable. ADRENALS: Unremarkable. No mass. KIDNEYS AND URETERS: Unremarkable. No hydronephrosis. No solid mass. VASCULATURE: Unremarkable. No aortic aneurysm. BOWEL: Unremarkable. No obstruction. No gross mural thickening. APPENDIX: Normal appendix. PERITONEUM: Unremarkable. No free fluid. No free air. LYMPH NODES: Unremarkable. No enlarged lymph nodes. BLADDER: Unremarkable. REPRODUCTIVE: Unremarkable. BONES: No acute fracture. OTHER FINDINGS: None. IMPRESSION: Large hiatal hernia. No acute intra-abdominal findings
--- NOTE | 2018-04-23 18:32 | CARD ---
APPROVED REPORT Date of service: 04/23/2018 EXAM: Two-dimensional and M-mode echocardiogram with Doppler and color Doppler. INDICATION CP, R/O ACS 2D DIMENSIONS Left Atrium (2D)3.1 (1.6-4.0cm)IVSd1.0 (0.7-1.1cm) LVDd4.1 (3.9-5.9cm)PWd1.1 (0.7-1.1cm) LVDs2.7 (2.5-4.0cm)FS (%) 33.5 % LVEF (%)62.8 (>50%) M-Mode DIMENSIONS Aortic Root3.00 (2.2-3.7cm)Aortic Cusp Exc.1.50 (1.5-2.0cm) Aortic Valve AoV Peak Wncdqyza189.0cm/Madhuri Peak GR.9mmHg Mitral Valve MV E Fbbhlfmd24.1cm/sMV A Jefwdecj98.5cm/sE/A ratio0.9 TDI Lateral E' Peak V6.43cm/sMedial E' Peak V4.68cm/sE/Lateral E'10.7 E/Medial E'14.8 Pulmonary Valve PV Peak Cutdjweb78.1cm/sPV Peak Grad.2mmHg Tricuspid Valve TR Peak Pfgglzhz607rg/sRAP ISPJFDSD12klMzVW Peak Gr.22mmHg [id number] LEFT VENTRICLE The left ventricle is normal size. There is normal left ventricular wall thickness. The left ventricular function is normal. The left ventricular ejection fraction is within the normal range. There is normal LV segmental wall motion. Transmitral Doppler flow pattern is Grade I-abnormal relaxation pattern. RIGHT VENTRICLE The right ventricle is normal size. There is normal right ventricular wall thickness. The right ventricular systolic function is normal. ATRIA The left atrium size is normal. The right atrium size is normal. AORTIC VALVE The aortic valve is mildly thickened. No aortic regurgitation is present. There is no aortic valvular stenosis. MITRAL VALVE The mitral valve is normal in structure. There is no mitral valve regurgitation noted. There is no mitral valve stenosis. TRICUSPID VALVE The tricuspid valve is normal in structure. There is trace to mild tricuspid regurgitation. GREAT VESSELS The aortic root is normal in size. The IVC is normal in size and collapses >50% with inspiration. PERICARDIAL EFFUSION There is a trace loculated anterior pericardial effusion. <Conclusion> The left ventricle is normal size. There is normal left ventricular wall thickness. The left ventricular function is normal. The left ventricular ejection fraction is within the normal range. There is normal LV segmental wall motion. Transmitral Doppler flow pattern is Grade I-abnormal relaxation pattern.
--- NOTE | 2018-04-23 19:21 | CARD ---
APPROVED REPORT Date of service: 04/23/2018 EKG Measurement Heart [id number] <Conclusion> Sinus bradycardia Inferior infarct, age undetermined T wave abnormality, consider anterolateral ischemia Abnormal ECG
--- NOTE | 2018-04-23 22:37 | CP.PCM.DIS ---
<Maximo Patel - Last Filed: 04/23/18 23:17> Provider - Provider Date of Admission: 04/22/18 17:17 Attending physician: Edis Alatorre MD Primary care physician: Mina Copeland MD Consults: GI - Dr. Hilario Cardiology - Dr. Gaines Time Spent in preparation of Discharge (in minutes): 40 Diagnosis - Discharge Diagnosis (1) Chest pain Status: Acute Priority: High (2) GERD (gastroesophageal reflux disease) Status: Acute Priority: High (3) Hypothyroid Status: Chronic Priority: Medium (4) HTN (hypertension) Status: Chronic Priority: Low Hospital Course - Lab Results Lab Results: Most Recent Lab Values WBC 4.7 10^3/ul (4.5-11.0) 04/23/18 06:30 RBC 4.52 10^6/uL (3.5-6.1) 04/23/18 06:30 Hgb 13.5 g/dL (12.0-16.0) 04/23/18 06:30 Hct 39.2 % (36.0-48.0) 04/23/18 06:30 MCV 86.7 fl (80.0-105.0) 04/23/18 06:30 MCH 29.9 pg (25.0-35.0) 04/23/18 06:30 MCHC 34.4 g/dl (31.0-37.0) 04/23/18 06:30 RDW 14.3 % (11.5-14.5) 04/23/18 06:30 Plt Count 208 10^3/uL (120.0-450.0) 04/23/18 06:30 MPV 9.2 fl (7.0-11.0) 04/23/18 06:30 Gran % 34.6 % (50.0-68.0) L 04/23/18 06:30 Lymph % (Auto) 53.5 % (22.0-35.0) H 04/23/18 06:30 [place] % (Auto) 7.5 % (1.0-6.0) H 04/23/18 06:30 Eos % (Auto) 3.8 % (1.5-5.0) 04/23/18 06:30 Baso % (Auto) 0.6 % (0.0-3.0) 04/23/18 06:30 Gran # 1.62 (1.4-6.5) 04/23/18 06:30 Lymph # (Auto) 2.5 (1.2-3.4) 04/23/18 06:30 [place] # (Auto) 0.4 (0.1-0.6) 04/23/18 06:30 Eos # (Auto) 0.2 (0.0-0.7) 04/23/18 06:30 Baso # (Auto) 0.03 K/mm3 (0.0-2.0) 04/23/18 06:30 PT 11.9 SECONDS (9.4-12.5) 04/22/18 15:46 INR 1.04 04/22/18 15:46 APTT 29.5 Seconds (25.1-36.5) 04/22/18 15:46 Sodium 139 mmol/L (132-148) 04/23/18 06:30 Potassium 3.7 mmol/L (3.6-5.0) 04/23/18 06:30 Chloride 102 mmol/L (98-107) 04/23/18 06:30 Carbon Dioxide 28 mmol/L (21-33) 04/23/18 06:30 Anion Gap 13 (10-20) 04/23/18 06:30 BUN 12 mg/dL (7-21) 04/23/18 06:30 Creatinine 0.7 mg/dl (0.7-1.2) 04/23/18 06:30 Est GFR ( Amer) > 60 04/23/18 06:30 Est GFR (Non-Af Amer) > 60 04/23/18 06:30 Random Glucose 93 mg/dL (70-110) 04/23/18 06:30 Hemoglobin A1c 5.6 % (4.2-6.5) 04/23/18 06:30 Calcium 9.0 mg/dL (8.4-10.5) 04/23/18 06:30 Phosphorus 3.8 mg/dL (2.5-4.5) 04/23/18 06:30 Magnesium 1.9 mg/dL (1.7-2.2) 04/23/18 06:30 Total Bilirubin 0.6 mg/dL (0.2-1.3) 04/23/18 06:30 AST 25 U/L (14-36) 04/23/18 06:30 ALT 30 U/L (7-56) 04/23/18 06:30 Alkaline Phosphatase 54 U/L (38-126) 04/23/18 06:30 Lactate Dehydrogenase 449 U/L (333-699) 04/22/18 15:46 Total Creatine Kinase 105 U/L (35-230) 04/22/18 15:46 Troponin I < 0.01 ng/mL 04/23/18 07:30 Total Protein 6.6 g/dL (5.8-8.3) 04/23/18 06:30 Albumin 3.7 g/dL (3.0-4.8) 04/23/18 06:30 Globulin 2.9 gm/dL 04/23/18 06:30 Albumin/Globulin Ratio 1.3 (1.1-1.8) 04/23/18 06:30 Triglycerides 87 mg/dL (35-160) 04/23/18 06:30 Cholesterol 165 mg/dL (130-200) 04/23/18 06:30 LDL Cholesterol Direct 83 mg/dL (0-129) 04/23/18 06:30 HDL Cholesterol 45 mg/dL (29-60) 04/23/18 06:30 Lipase 83 U/L (23-300) 04/22/18 15:46 Free T4 1.62 ng/dL (0.78-2.19) 04/23/18 06:30 TSH 3rd Generation 7.57 mIU/mL (0.46-4.68) H 04/23/18 06:30 Urine Color Yellow (YELLOW) 04/22/18 15:46 Urine Appearance Clear (CLEAR) 04/22/18 15:46 Urine pH 6.0 (4.7-8.0) 04/22/18 15:46 Ur Specific [place] 1.010 (1.005-1.035) 04/22/18 15:46 Urine Protein Negative mg/dL (<30 mg/dL) 04/22/18 15:46 Urine Glucose (UA) Negative mg/dL (NEGATIVE) 04/22/18 15:46 Urine Ketones Negative mg/dL (NEGATIVE) 04/22/18 15:46 Urine Blood Trace-intact (NEGATIVE) H 04/22/18 15:46 Urine Nitrate Negative (NEGATIVE) 04/22/18 15:46 Urine Bilirubin Negative (NEGATIVE) 04/22/18 15:46 Urine Urobilinogen 0.2 E.U./dL (<1 E.U./dL) 04/22/18 15:46 Ur Leukocyte Esterase Negative Roman/uL (NEGATIVE) 04/22/18 15:46 Urine RBC 1 - 3 /hpf (0-2) 04/22/18 15:46 Urine WBC 0 - 2 /hpf (0-6) 04/22/18 15:46 Ur Epithelial Cells 3 - 4 /hpf (0-5) 04/22/18 15:46 Urine Bacteria Mod (NEG) 04/22/18 15:46 - Hospital Course Hospital Course: 72 F with pertinent medical history of HTN, hypothyroidism, and HLD, presented to [facility] ED on 04/22 with CC of chest pain. On admission, current lab values indicate no acute electrolyte abnormalities, as well as negative troponins, indicating no cardiac infarction. EKG on admission did not show any VIVIAN nor did it show any ST depressions indicating ischemia. Recent myocardial perfusion study is also negative. Troponins were trended x3 without any elevation, repeat EKG in AM relatively unchanged from prior EKG. Patient's lipid panel was wnl, and TSH was elevated. Her synthroid doseage was subsequently increased. Repeat echocardiogram showed no change in EF. CTAP showed patient had a large hiatal hernia; and GI evaluation conlcuded that patient is to continue with PPI therapy as discussed from office visits with Dr. Hilario. She is also to continue with small soft consistency meals through the day. Due to large size of paraesophageal type 3 hernia patient is recommended to been further evaluated by surgery for correction of hiatal hernia which is most likely a cause of her symptoms. Patient can follow up with Dr. Hilario within 1 week of discharge. She was also given a referral for general surgery as well. On morning prior to discharge, Patient was seen and examined at bedside. She reported decreased complaints of chest pain, and epigastric discomfort. She denied any N/V/D/C, SOB, Cough, LE Edema, Numbness/tingling, Focal weakness on evaluation. Remainder of 12 system ROS was otherwise unremarkable morning of DC. She was given the following instructions upon discharge: Please follow up with your primary care doctor, Dr. Copeland, within 3-5 days for post hospitalization follow up. Please discuss with him any changes to your medications and all medical ailments treated during your admission. Please follow up with your product mgr, Dr. Hilario, within one to two weeks for post hospitalization follow up. Please discuss with him any changes to your medications and all medical ailments treated during your admission. Dr. Hilario's contact information has been provided for your convenience. It has been recommended that you follow up with a general surgeon for evaluation of hiatal hernia repair. Dr. Margaret Patel is a general surgeon and his contact information has been provided for your convenience. We have increased the dose of your Synthroid, thyroid medication, from 75mcg daily to 100mcg daily as your TSH was increased during this admission. Please discuss this and the need for further monitoring with your primary care doctor, Dr. Copeland. We have added two medications for you. They are called Protonix and Zantac and these will help control your acid reflux symptoms and help to manage symptoms of your hiatal hernia. You will take the Protonix in the morning and the Zantac before bedtime. Please discuss these new medications and any further questions you may have with your primary care doctor, Dr. Copeland. Information on these medications have been provided in this paperwork. It has been recommended by Dr. Hilario that you adhere to a soft food diet and that you eat six davis meals per day. Please discontinue your home Pepcid. The two new medications that have been added will replace this medication. Please take all medications as prescribed. Should your symptoms return, please seek emergency medical care attention. ---- Patient is medically optimized for discharge at this time. - Date & Time of H&P Date of H&P: 04/22/18 Time of H&P: 20:29 Discharge Exam - Head Exam Head Exam: ATRAUMATIC, NORMAL INSPECTION, NORMOCEPHALIC - Eye Exam Eye Exam: EOMI, Normal appearance, PERRL. absent: Scleral icterus - ENT Exam ENT Exam: Mucous Membranes Moist - Respiratory Exam Respiratory Exam: Clear to PA & Lateral, UNREMARKABLE. absent: Rales, Rhonchi, Wheezes - Cardiovascular Exam Cardiovascular Exam: REGULAR RHYTHM, RRR, +S1, +S2 Additional comments: Chest wall tenderness to palpation along sternal border - GI/Abdominal Exam GI & Abdominal Exam: Normal Bowel Sounds, Soft, Tenderness Additional comments: Minimal abdominal tenderness in epigastric region - Extremities Exam Extremities exam: pedal pulses present Additional comments: no LE Edema - Back Exam Back exam: absent: CVA tenderness (L), CVA tenderness (R) - Neurological Exam Neurological exam: Alert, CN II-XII Intact, Oriented x3 - Psychiatric Exam Psychiatric exam: Normal Affect, Normal Mood - Skin Skin Exam: Dry, Intact, Normal Color, Warm Discharge Plan - Discharge Medications Prescriptions: Levothyroxine [Synthroid] 100 mcg PO 0600 #14 tab Pantoprazole Sodium [Protonix] 40 mg PO DAILY #14 ect Ranitidine HCl 150 mg PO HS #14 tablet - Follow Up Plan Condition: STABLE Disposition: HOME/ ROUTINE Instructions: Acid Reflux (Gastroesophageal Reflux Disease), Adult (DC), Hiatal Hernia (DC), Levothyroxine, Pantoprazole, Ranitidine Additional Instructions: Please follow up with your primary care doctor, Dr. Copleand, within 3-5 days for post hospitalization follow up. Please discuss with him any changes to your medications and all medical ailments treated during your admission. Please follow up with your product mgr, Dr. Hilario, within one to two weeks for post hospitalization follow up. Please discuss with him any changes to your medications and all medical ailments treated during your admission. Dr. Hilario's contact information has been provided for your convenience. It has been recommended that you follow up with a general surgeon for evaluation of hiatal hernia repair. Dr. Margaret Patel is a general surgeon and his contact information has been provided for your convenience. We have increased the dose of your Synthroid, thyroid medication, from 75mcg daily to 100mcg daily as your TSH was increased during this admission. Please discuss this and the need for further monitoring with your primary care doctor, Dr. Copeland. We have added two medications for you. They are called Protonix and Zantac and these will help control your acid reflux symptoms and help to manage symptoms of your hiatal hernia. You will take the Protonix in the morning and the Zantac before bedtime. Please discuss these new medications and any further questions you may have with your primary care doctor, Dr. Copeland. Information on these medications have been provided in this paperwork. It has been recommended by Dr. Hilario that you adhere to a soft food diet and that you eat six davis meals per day. Please discontinue your home Pepcid. The two new medications that have been added will replace this medication. Please take all medications as prescribed. Should your symptoms return, please seek emergency medical care attention. Referrals: Mina Copeland MD [Primary Care Provider] - Margaret Patel MD [Staff Provider] - Jose Alberto Hilario MD [Medical Doctor] - <Edis Alatorre - Last Filed: 04/24/18 07:54> Provider - Provider Date of Admission: 04/22/18 17:17 Attending physician: Edis Alatorre MD Primary care physician: Mina Copeland MD Hospital Course - Lab Results Lab Results: Most Recent Lab Values WBC 4.7 10^3/ul (4.5-11.0) 04/23/18 06:30 RBC 4.52 10^6/uL (3.5-6.1) 04/23/18 06:30 Hgb 13.5 g/dL (12.0-16.0) 04/23/18 06:30 Hct 39.2 % (36.0-48.0) 04/23/18 06:30 MCV 86.7 fl (80.0-105.0) 04/23/18 06:30 MCH 29.9 pg (25.0-35.0) 04/23/18 06:30 MCHC 34.4 g/dl (31.0-37.0) 04/23/18 06:30 RDW 14.3 % (11.5-14.5) 04/23/18 06:30 Plt Count 208 10^3/uL (120.0-450.0) 04/23/18 06:30 MPV 9.2 fl (7.0-11.0) 04/23/18 06:30 Gran % 34.6 % (50.0-68.0) L 04/23/18 06:30 Lymph % (Auto) 53.5 % (22.0-35.0) H 04/23/18 06:30 [place] % (Auto) 7.5 % (1.0-6.0) H 04/23/18 06:30 Eos % (Auto) 3.8 % (1.5-5.0) 04/23/18 06:30 Baso % (Auto) 0.6 % (0.0-3.0) 04/23/18 06:30 Gran # 1.62 (1.4-6.5) 04/23/18 06:30 Lymph # (Auto) 2.5 (1.2-3.4) 04/23/18 06:30 [place] # (Auto) 0.4 (0.1-0.6) 04/23/18 06:30 Eos # (Auto) 0.2 (0.0-0.7) 04/23/18 06:30 Baso # (Auto) 0.03 K/mm3 (0.0-2.0) 04/23/18 06:30 PT 11.9 SECONDS (9.4-12.5) 04/22/18 15:46 INR 1.04 04/22/18 15:46 APTT 29.5 Seconds (25.1-36.5) 04/22/18 15:46 Sodium 139 mmol/L (132-148) 04/23/18 06:30 Potassium 3.7 mmol/L (3.6-5.0) 04/23/18 06:30 Chloride 102 mmol/L (98-107) 04/23/18 06:30 Carbon Dioxide 28 mmol/L (21-33) 04/23/18 06:30 Anion Gap 13 (10-20) 04/23/18 06:30 BUN 12 mg/dL (7-21) 04/23/18 06:30 Creatinine 0.7 mg/dl (0.7-1.2) 04/23/18 06:30 Est GFR ( Amer) > 60 04/23/18 06:30 Est GFR (Non-Af Amer) > 60 04/23/18 06:30 Random Glucose 93 mg/dL (70-110) 04/23/18 06:30 Hemoglobin A1c 5.6 % (4.2-6.5) 04/23/18 06:30 Calcium 9.0 mg/dL (8.4-10.5) 04/23/18 06:30 Phosphorus 3.8 mg/dL (2.5-4.5) 04/23/18 06:30 Magnesium 1.9 mg/dL (1.7-2.2) 04/23/18 06:30 Total Bilirubin 0.6 mg/dL (0.2-1.3) 04/23/18 06:30 AST 25 U/L (14-36) 04/23/18 06:30 ALT 30 U/L (7-56) 04/23/18 06:30 Alkaline Phosphatase 54 U/L (38-126) 04/23/18 06:30 Lactate Dehydrogenase 449 U/L (333-699) 04/22/18 15:46 Total Creatine Kinase 105 U/L (35-230) 04/22/18 15:46 Troponin I < 0.01 ng/mL 04/23/18 07:30 Total Protein 6.6 g/dL (5.8-8.3) 04/23/18 06:30 Albumin 3.7 g/dL (3.0-4.8) 04/23/18 06:30 Globulin 2.9 gm/dL 04/23/18 06:30 Albumin/Globulin Ratio 1.3 (1.1-1.8) 04/23/18 06:30 Triglycerides 87 mg/dL (35-160) 04/23/18 06:30 Cholesterol 165 mg/dL (130-200) 04/23/18 06:30 LDL Cholesterol Direct 83 mg/dL (0-129) 04/23/18 06:30 HDL Cholesterol 45 mg/dL (29-60) 04/23/18 06:30 Lipase 83 U/L (23-300) 04/22/18 15:46 Free T4 1.62 ng/dL (0.78-2.19) 04/23/18 06:30 TSH 3rd Generation 7.57 mIU/mL (0.46-4.68) H 04/23/18 06:30 Urine Color Yellow (YELLOW) 04/22/18 15:46 Urine Appearance Clear (CLEAR) 04/22/18 15:46 Urine pH 6.0 (4.7-8.0) 04/22/18 15:46 Ur Specific [place] 1.010 (1.005-1.035) 04/22/18 15:46 Urine Protein Negative mg/dL (<30 mg/dL) 04/22/18 15:46 Urine Glucose (UA) Negative mg/dL (NEGATIVE) 04/22/18 15:46 Urine Ketones Negative mg/dL (NEGATIVE) 08/22/18 15:46 Urine Blood Trace-intact (NEGATIVE) H 04/22/18 15:46 Urine Nitrate Negative (NEGATIVE) 04/22/18 15:46 Urine Bilirubin Negative (NEGATIVE) 04/22/18 15:46 Urine Urobilinogen 0.2 E.U./dL (<1 E.U./dL) 04/22/18 15:46 Ur Leukocyte Esterase Negative Roman/uL (NEGATIVE) 04/22/18 15:46 Urine RBC 1 - 3 /hpf (0-2) 04/22/18 15:46 Urine WBC 0 - 2 /hpf (0-6) 04/22/18 15:46 Ur Epithelial Cells 3 - 4 /hpf (0-5) 04/22/18 15:46 Urine Bacteria Mod (NEG) 04/22/18 15:46 Attending/Attestation - Attestation I have personally seen and examined this patient.: Yes I have fully participated in the care of the patient.: Yes I have reviewed all pertinent clinical information, including history, physical exam and plan: Yes Notes (Text): 04/23/18 72 year old female with past medical history of hypertension, hypothyroidism, hiatal hernia and dyslipidemia who presented with complaint of chest/epigastric pain. Serial cardiac were negative and ACS was ruled out. She had a recent stress test which was essentially negative. She was seen by cardiology. She was also seen by GI. CT abd/pelvis was obtained which showed large hiatal hernia. She is on PPI and zantac per GI. TSH was elevated and her synthroid dose was increased. Patient is discharged home to follow up with her pmd. Follow up with GI and cardiology. Follow up with surgery. Repeat TFTs in 4-6 weeks. Edis Alatorre MD Hospitalist.
[2018-04-24] MEDS ORDERED: Levothyroxine 100 MCG TAB PO SCH (06:00)
== END 2018-04-23 17:25 | disposition home or self-care (01) ==
LOC: ED 13:33 → ERH 17:17 → 2RNO 18:31
PROVIDERS: ADMIT Hospitalist; ATTEND Internal Medicine
DX: K21.9 Gastro-esophageal reflux disease without esophagitis (principal); R07.89 Other chest pain; K44.9 Diaphragmatic hernia without obstruction or gangrene; I10 Essential (primary) hypertension; E03.9 Hypothyroidism, unspecified; F32.9 Major depressive disorder, single episode, unspecified; R73.03 Prediabetes; K29.50 Unspecified chronic gastritis without bleeding; K57.90 Diverticulosis of intestine, part unspecified, without perforation or abscess without bleeding; J44.9 Chronic obstructive pulmonary disease, unspecified; E78.5 Hyperlipidemia, unspecified; I27.20 Pulmonary hypertension, unspecified; F40.9 Phobic anxiety disorder, unspecified; Z87.891 Personal history of nicotine dependence; Z79.82 Long term (current) use of aspirin
CPT/HCPCS: 36415; 71045; 74177; 80053; 80061; 81001; 82550; 83036; 83615; 83690; 83735; 84100; 84439; 84443; 84484; 85025; 85610; 85730; 93005; 93306; 94640; 94760; 96374; 99285; G0378; J1650; Q9967